=== PATIENT | female | born 1965 | race American Indian/Alaskan Native ===

== ENCOUNTER → 2024-06-04 | Outpatient (CLI) | payer MEDICAID, SELFPAY ==
--- NOTE | 2024-06-04 12:44 | XR_ITS ---
Examination: Knee bilateral, 7 views Technique: Knee AP, lateral, oblique each knee total 6 views, bilateral axial knees single view, total 7 views Date and time of exam: June 04, 2024 1311 hours INDICATIONS: Bilateral knee pain 10 years getting worse FINDINGS: Bilateral moderate advanced tricompartment osteoarthritis, more severe left knee No patellar dislocation No fracture IMPRESSION: Bilateral moderate to advanced tricompartment osteoarthritis
== END | disposition home or self-care (01) ==
PROVIDERS: PCP Physician Assistant; Referring Provider Internal Medicine; Visit Provider Internal Medicine
DX: M17.0 Bilateral primary osteoarthritis of knee (principal)
CPT/HCPCS: 73564

== ENCOUNTER 2024-12-22 09:53 | Outpatient (AMB) | payer MEDICAID, SELFPAY ==
--- NOTE | 2024-12-22 10:16 | ORTHONT_ITS ---
Vital signs 12/22/24 10:17 Height 1.65 m Height Method Measured Weight 94.461 kg Weight Measurement Method Standing Scale BMI 34.6 BP 130/88 H Blood Pressure Source Automatic Cuff Blood Pressure Location Right Upper Arm Position Sitting Respiration 18 Pulse 69 Pulse Source Monitor Temp 97.9 F Temp Source Temporal Artery Scan Pulse Oximetry (%) 98 Oxygen Delivery Method Room Air Med/Allergies Allergies & Medications Allergies aspirin Allergy (Unknown, Verified 12/22/24 10:18) EYES SWELL Medication Reconciliation diclofenac sodium 3 % topical gel 1 applic topical BID #100 grams 12/22/24 [Rx] meloxicam 7.5 mg tablet 7.5 mg PO QDAY #45 tabs 12/22/24 [Rx] Exam Exam Patient is in no acute distress and is cooperative with the examination today. Breathing is nonlabored. In no respiratory distress. Bilateral extremities were evaluated and demonstrates sensation intact to light touch. Palpable pedal pulses are present. No significant edema is present. Bilateral hips were examined. The patient has no pain with log roll of the hips. Internal rotation to 30 degrees and external rotation to 30 degrees is painless. Negative FADIR. The left knee was examined. The left knee is in varus alignment. Range of motion from 0-115 degrees. Knee is stable to varus and valgus as well as AP translation with <5mm. Patient has a negative McMurrays. There is no pain with patellofemoral compression and no crepitus noted. The knee is tender to palpation medially. The right knee was also examined. The right knee is in varus alignment. Range of motion from 0-120 degrees. Knee is stable to varus and valgus as well as AP translation with <5mm. Patient has a negative McMurrays. There is no pain with patellofemoral compression and no crepitus noted. The knee is tender to palpation medially. Nonweightbearing x-rays were reviewed. This demonstrates moderate arthritis Assessment and Plan Problem List (1) Degenerative arthritis of knee, bilateral: Status: Acute Plan: Patient is a pleasant 59-year-old female with bilateral knee arthritis of significant severity. We discussed different treatment options. We will need weightbearing x-rays and we will discuss more injections versus surgery at the next visit severity. 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 3 ([id number]) MA Intake Visit Data Collection New Patient or Established: New Patient (never been to [facility]) Reason for Visit:: BILATERAL KNEE PAIN Seen by Clinical Staff ONLY (RN/MA): No Senior Maintenance Mechanic Required: No PCP or OBGYN visit in last 3 months: Yes Hx Now: No Do You Feel Safe at Home: Yes Authorities Contacted: N/A Questionairres Past Medical History Past Medical History Have you ever been diagnosed with any of the following: Neurological Problems Seizures: No Cardiology Problems Congestive Heart Failure: No Varicose Veins: Yes Respiratory Problems Chronic Obstructive Pulmonary Disease (COPD): No Stomache/Intestinal Problems Hepatitis: No Obesity: Yes Genital/Urinary Problems Renal Disease: No Reproductive Problems Previous Pregnancies: Yes Musculoskeletal Problems Arthritis: Yes (knees) Endocrine Problems Diabetes Mellitus Type 1: No Diabetes Mellitus Type 2: No Other Problems Hospitalization: No Shingles: No Blood Transfusions: No Anesthesia Reactions: No Chicken Pox: Yes Cancer: No Subjective Visit Visit for: new patient and knee Immunization / Flu Flu Vaccine in the Last 12 Months: Yes Flu Vaccine Exclusion Criteria: Already Received History of Present Illness Chief complaint: BILATERAL KNEE PAIN Date of injury / onset of symptoms: 10-15 YEARS AGO Patient is a pleasant 59-year-old female with bilateral knee pain. The knee pain is equal on both sides. This been ongoing for a while. She has had over 10 injections. She has tried anti-inflammatories in the past as well. 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
[2024-12-22 10:17] VITALS: BP 130/88; PULSE 69; RESP 18; TEMP 36.6; O2SAT 98; BMI 34.6
--- NOTE | 2024-12-22 10:33 | XR_ITS ---
Examination: Bilateral knees 2 views Right lateral knee left lateral knee 2 views Bilateral axial knees single view TECHNIQUE: Bilateral AP knees standing single view, bilateral PA knees standing single view flexion Standing right lateral knee left lateral knee 2 views Bilateral axial knees single view total 5 views Date and time: December 22, 2024, 1036 hours INDICATIONS: Bilateral knee pain 20 years. FINDINGS: Advanced narrowing [id number] lateral joint spaces bilaterally Significant osteoarthritis medial and patellofemoral joints No fractures IMPRESSION: Advanced narrowing [id number] lateral joint spaces bilaterally Significant osteoarthritis medial and patellofemoral joints
== END 2024-12-22 10:38 | disposition home or self-care (01) ==
PROVIDERS: PCP Physician Assistant; Referring Provider Physician Assistant; Supervising Provider Orthopaedic Surgery Adult Reconstructive Orthopaedic Surgery; Visit Provider Orthopaedic Surgery Adult Reconstructive Orthopaedic Surgery
DX: M17.0 Bilateral primary osteoarthritis of knee (principal); M25.562 Pain in left knee; M25.561 Pain in right knee
CPT/HCPCS: 73564; 99203; G0463

== ENCOUNTER 2025-03-26 09:22 | Outpatient (AMB) | payer MEDICAID, SELFPAY ==
--- NOTE | 2025-03-26 09:45 | PD.ORTHCLVIS ---
Vital signs 03/26/25 09:46 Height 1.65 m Height Method Measured Weight 91.796 kg Weight Measurement Method Standing Scale BMI 33.7 BP 119/81 Blood Pressure Source Automatic Cuff Blood Pressure Location Left Upper Arm Position Sitting Respiration 19 Pulse 62 Pulse Source Monitor Temp 96.9 F Temp Source Temporal Artery Scan Pulse Oximetry (%) 98 Oxygen Delivery Method Room Air Med/Allergies Allergies & Medications Allergies aspirin Allergy (Unknown, Verified 03/26/25 09:47) EYES SWELL Medication Reconciliation diclofenac sodium 3 % topical gel 1 applic topical BID #100 grams 12/22/24 [Rx Confirmed 03/26/25] meloxicam 7.5 mg tablet 7.5 mg PO QDAY #45 tabs 12/22/24 [Rx Confirmed 03/26/25] Exam Exam Patient is in no acute distress and is cooperative with the examination today. Breathing is nonlabored. In no respiratory distress. Bilateral extremities were evaluated and demonstrates sensation intact to light touch. Palpable pedal pulses are present. No significant edema is present. Bilateral hips were examined. The patient has no pain with log roll of the hips. Internal rotation to 30 degrees and external rotation to 30 degrees is painless. Negative FADIR. The left knee was examined. The left knee is in varus alignment. Range of motion from 0-115 degrees. Knee is stable to varus and valgus as well as AP translation with <5mm. Patient has a negative McMurrays. There is no pain with patellofemoral compression and no crepitus noted. The knee is tender to palpation medially. The right knee was also examined. The right knee is in varus alignment. Range of motion from 0-120 degrees. Knee is stable to varus and valgus as well as AP translation with <5mm. Patient has a negative McMurrays. There is no pain with patellofemoral compression and no crepitus noted. The knee is tender to palpation medially. Weightbearing x-rays demonstrates joint space narrowing laterally with complete joint space obliteration both in left and right knees on the Chen view Assessment and Plan Problem List (1) Degenerative arthritis of knee, bilateral: Status: Acute Plan: Patient is a pleasant 59-year-old female with bilateral knee arthritis of significant severity. We discussed different treatment options. Weightbearing x-rays demonstrate significant arthritis. The patient has she is doing better than we last saw her. We discussed nonoperative options including injections and anti-inflammatories and physical therapy. She would like to continue with anti-inflammatories for now. We will see her back in approximately 6 months Office Procedures GNS Level of Care Nursing/Assessment Patient Status: Established Patient Nursing Assessment/Reassesment: Medication Reconciliation, Update PMH in EMR and Vital Signs Coordination of Care: Complex Care and Chronic Disease 1-5, Education Complex Pt/Fam, Consent,records obtained, informed consent, Results/Orders obtained and Staff clarify orders Established Patient Charge Established Patient Point Assignment: 95 Established Patient Point Charge: EP Level 3 (80-115) MA Intake Visit Data Collection New Patient or Established: Established Patient (seen at [facility] within 3 years) Reason for Visit:: 3 MONTH F/U BILATERAL KNEE PAIN Seen by Clinical Staff ONLY (RN/MA): No Physical Chemistry Professor Required: No PCP or OBGYN visit in last 3 months: Yes Hx Now: No Do You Feel Safe at Home: Yes Authorities Contacted: N/A Questionairres Past Medical History Past Medical History Have you ever been diagnosed with any of the following: Neurological Problems Seizures: No Cardiology Problems Congestive Heart Failure: No Varicose Veins: Yes Respiratory Problems Chronic Obstructive Pulmonary Disease (COPD): No Stomache/Intestinal Problems Hepatitis: No Obesity: Yes Genital/Urinary Problems Renal Disease: No Reproductive Problems Previous Pregnancies: Yes Musculoskeletal Problems Arthritis: Yes (knees) Endocrine Problems Diabetes Mellitus Type 1: No Diabetes Mellitus Type 2: No Other Problems Hospitalization: No Shingles: No Blood Transfusions: No Anesthesia Reactions: No Chicken Pox: Yes Cancer: No Subjective Visit Visit for: follow up visit and knee Immunization / Flu Flu Vaccine in the Last 12 Months: Yes Flu Vaccine Exclusion Criteria: Already Received History of Present Illness Chief complaint: BILATERAL KNEE PAIN Date of injury / onset of symptoms: 10-15 YEARS AGO Patient is a pleasant 59-year-old female with bilateral knee pain. The knee pain is equal on both sides. This been ongoing for a while. She has had over 10 injections. She has tried anti-inflammatories in the past as well. 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
[2025-03-26 09:46] VITALS: BP 119/81; PULSE 62; RESP 19; TEMP 36.1; O2SAT 98; BMI 33.7
== END 2025-03-26 10:00 | disposition home or self-care (01) ==
LOC: HODSRG 09:22
PROVIDERS: PCP Physician Assistant; Referring Provider Physician Assistant; Supervising Provider Orthopaedic Surgery Adult Reconstructive Orthopaedic Surgery; Visit Provider Orthopaedic Surgery Adult Reconstructive Orthopaedic Surgery
DX: M25.562 Pain in left knee (principal); M25.561 Pain in right knee; M17.0 Bilateral primary osteoarthritis of knee; E66.9 Obesity, unspecified; Z68.33 Body mass index [BMI] 33.0-33.9, adult
CPT/HCPCS: 99213; G0463

== ENCOUNTER 2025-04-24 13:27 | Inpatient (IN) | payer MEDICAID, SELFPAY ==
[2025-04-24] VITALS (7 sets, daily range): BP systolic 151–166; BP diastolic 89–99; PULSE 76–87; RESP 17–100; TEMP 36.1–36.9; O2SAT 97–100; BMI 30.7
--- NOTE | 2025-04-24 | XR_ITS ---
Examinations: MRI Brain without intravenous contrast. MRA brain without intravenous contrast. MRA carotids without intravenous contrast 3-D vascular reconstructions Date and time of exam: April 24, 2025, 1739 hours INDICATIONS: Stroke alert today, onset focal neurologic deficit Technique: Multiple axial and sagittal images of the brain have been obtained MRA brain carotid images without contrast obtained, including 3-D postprocessing, vascular maximum intensity projection images Findings: [place] is not enlarged. The optic chiasm and infundibular stalk are not remarkable. Prepontine and interpeduncular cisterns are not enlarged. No localized enlargement of the medulla or shannen. Fourth ventricle and cerebellar tonsils normal in position. Subacute hemorrhage is not seen. Fourth ventricle is midline. Mass in the cerebellopontine angle region is not evident. 7th and 8th nerve complexes exhibits symmetry. Globes are symmetrical with no retro-orbital mass. Increased white matter signal evident, punctate foci increased signal in the white matter Diffusion-weighted images demonstrate no focus of restricted diffusion Mass-effect upon the ventricular system is not identified. MRA carotid images suspicious for right carotid significant stenosis however the images are degraded. MRA brain images no large vessel occlusions Impression: Negative for acute hemorrhage, mass effect or midline shift No acute infarct Punctate foci increased signal in the white matter consider demyelinating disease Recommend carotid Doppler sonography follow-up to exclude significant stenosis origin right internal carotid artery
--- NOTE | 2025-04-24 13:49 | XR_ITS ---
EXAMINATION: AP chest single view TECHNIQUE: AP portable semiupright chest single view Date and time: April 24, 2025, 1407 hours, comparison August 18, 2021 INDICATIONS: Stroke alert today FINDINGS: Mild enlargement cardiac contour. No aspiration pneumonia or pulmonary edema. Moderate osteopenia IMPRESSION: Negative for aspiration pneumonia
--- NOTE | 2025-04-24 13:49 | XR_ITS ---
Examination: CT brain head without contrast. 2-D sagittal coronal reconstructions Date and time of exam: April 24 2025, 1404 hours INDICATIONS: Stroke alert, onset focal neurologic deficit today CTDI: vol (mGy): 46.1 DLP: (mGycm): 920 Technique: Multiple CT axial sections of the brain have been obtained, 5 mm slice thickness. Contrast has not been administered. 2-D sagittal, coronal reconstructions have been obtained Low dose protocols were performed. One or more of the following dose reduction techniques were used; automated exposure control, adjustment of the mA and/or KV according to patient size, use of iterative reconstruction technique. Findings: No significant ventricular enlargement. Intra-axial or extra-axial hemorrhage density is not seen. No mass effect or midline shift Basal cisterns are not remarkable. Fourth ventricle is midline. Cranial vault intact. Impression: Negative for acute hemorrhage, mass effect or midline shift
--- NOTE | 2025-04-24 13:49 | EKG_ITS ---
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
--- NOTE | 2025-04-24 13:49 | XR_ITS ---
Examination: CTA carotids with intravenous contrast CTA brain, head with intravenous contrast. 2-D sagittal, coronal reconstructions. 3-D reconstructions. Exam date and time: April 24, 2025, 1411 hours INDICATIONS: Stroke alert, onset focal neurologic deficit today CTDI: vol (mGy) 11.4 DLP: (mGycm) 432 Technique: Multiple CTA axial brain, head carotid images post intravenous contrast injection 100 cc, [id number]. 2-D sagittal, coronal reconstructions. 3-D reconstructions, 3-D post processing including vascular maximum intensity projection images. Low dose protocols were performed. One or more of the following dose reduction techniques were used; automated exposure control, adjustment of the mA and/or KV according to patient size, use of iterative reconstruction technique. Findings: No significant common carotid carotid bifurcation or internal carotid artery stenoses Dominant right vertebral artery with no critical stenoses Intracranial vertebral arteries basilar artery and posterior cerebral branches fill with no large vessel occlusions Juxtasellar supraclinoid portions internal carotid arteries fill M1 segments middle cerebral arteries middle cerebral artery trifurcation vessels and anterior cerebral arteries fill with no large vessel occlusions IMPRESSION: No significant neck arterial stenoses No cerebral large vessel arterial occlusions or thrombus
--- NOTE | 2025-04-24 13:52 | EDNOTE_ITS ---
ED General RME/HPI General Chief complaint: Eye Problems Stated complaint: Left arm numb while driving, vision impaired Time Seen by Provider: 04/24/25 13:49 Arrival date/time: 04/24/25 13:27 59-year-old female patient with no past medical history, came in for evaluation regarding strokelike symptoms. Onset of symptoms about 20 minutes prior to ER visit as sudden onset of numbness to the lower lip, numbness to the left upper extremity, and blurry vision bilateral eyes. Patient also told me that her left eye cannot see lateral aspect of the visual field. It happened while driving on the way to home. She told me it lasted for 10 minutes. Clinically patient is having mild facial asymmetry, mild loss of nasolabial fold on the left. She denies any headache she denies any dizziness. She denies any upper or lower extremity weakness is ambulatory. She denies any other complaints. No medications taken prior to arrival. She denies any trauma to the head. She told me that she woke up this morning felt nauseous. It went away on its own. Related Data Previous Rx's ?Medication ?Instructions ?Recorded diclofenac sodium 3 % topical gel 1 applic topical BID #100 grams 12/22/24 meloxicam 7.5 mg tablet 7.5 mg PO QDAY #45 tabs 12/02 07/28 Allergies Allergy/AdvReac Type Severity Reaction Status Date / Time aspirin Allergy Unknown EYES SWELL Verified 04/24/25 13:31 Review of Systems Review of Systems Narrative Review of Systems: Review of system reviewed and within normal limits except mentioned in HPI ED Exam Narrative Physical exam: VITAL SIGNS: Reviewed. GENERAL APPEARANCE: Alert and interactive, follows commands, no acute distress, HEAD AND FACE: Non-traumatic. Mild facial asymmetry, loss of nasolabial fold on the left ENT: PERRL, pink conjunctivitis, eyelid no trauma, Mucous membrane moist. NECK: Supple, nontender, no nuchal rigidity. CHEST: No tenderness, no crepitus, no paradoxical movement, no retractions. LUNGS: Clear, well ventilated, symmetric, no rales, no wheezing, no ronchi, no stridor, good breath sounds bilaterally. HEART: Regular rate, regular rhythm, no murmur, no gallops. ABDOMEN: Soft, positive bowel sounds, nondistended, no guarding, nontender, no rebound, no masses, RECTAL: Deferred. GENITAL: Deferred. NEUROLOGICAL: Gross motor function intact sensory function intact, Appropriate for age. MUSCULOSKELETAL: low back nontender, full range of motion. EXTREMITIES: Nontender, full range of motion. SKIN: Color pink, dry, no rash, no lacerations, no abrasions, no contusions. LYMPHATICS: Deferred. Course Quality Measures none Orders Category Date Time Status Bedside Blood Glucose NOW Care 04/24/25 13:49 Active Procurement Clerk NOW Care 04/24/25 13:49 Active Continuous Pulse Oximetry NOW Care 04/24/25 13:49 Completed EKG (ED ONLY) *Do not use* NOW Care 04/24/25 13:49 Active In and Out Catheter NEEDED Care 04/24/25 13:49 Active Insert IV NOW Care 04/24/25 13:49 Active NIH Stroke Scale now Care 04/24/25 13:49 Active NPO NOW Care 04/24/25 13:49 Active Nurse Swallow Screen x1 Care 04/24/25 13:49 Active Consult to Neurology / Tele-Neurology Routine Cons 04/24/25 13:[address] angio stroke protocol Stat Exams 04/24/25 13:[address] stroke protocol Stat Exams 04/24/25 13:49 Taken EKG (ED Only) Stat Exams 04/24/25 13:49 Ordered XR chest 1V portable Stat Exams 04/24/25 13:49 Taken CBC Stat Lab 04/24/25 13:53 Completed Comprehensive Metabolic Panel Stat Lab 04/24/25 13:53 Results HCG Titer if Positive Stat Lab 04/24/25 13:53 Results Magnesium Stat Lab 04/24/25 13:53 Results Partial Thromboplastin Time Stat Lab 04/24/25 13:53 Completed Prothrombin Time with INR Stat Lab 04/24/25 13:53 Completed Troponin I Stat Lab 04/24/25 13:53 Results Urinalysis, C/S if Indicated Stat Lab 04/24/25 13:49 Ordered Clopidogrel [Plavix] Med 04/24/25 14:37 Discontinued 300 mg PO X1 ONE Labetalol* IV [Trandate* IV] Med 04/24/25 13:49 Active 10 mg IVP Q15M PRN Ondansetron Inj [Zofran Inj] Med 04/24/25 13:49 Active 4 mg IVP Q4HR PRN Oxygen Delivery NOW RT 04/24/25 13:49 Active Vital Signs Vital signs: Vital Signs Temperature 98.5 F 04/24/25 13:35 Pulse Rate 87 04/24/25 13:35 Respiratory Rate 17 04/24/25 13:35 Blood Pressure 162/99 H 04/24/25 13:35 Pulse Oximetry (%) 97 04/24/25 13:35 Oxygen Delivery Method Room Air 04/24/25 13:35 Discharge Plan Plan Patient Disposition: Admit Acute Care w/in Hospital Prescriptions/Referrals Prescriptions/Med Rec: No Action meloxicam 7.5 mg tablet 7.5 mg PO QDAY Qty: 45 3RF diclofenac sodium 3 % gel 1 applic topical BID Qty: 100 0RF Referrals: Erick(Chay)Kimberly PA-C [Primary Care Provider] - In 1 week Problem List Clinical Impression: Brain TIA Patient/Caregiver Discharge Instructions Print Language: Mauritanian Stand Alone Forms: [employer]leyda Award Info., Patient Portal Info Letter MDM Narrative MDM hospital course (for use when minimal MDM required): 59-year-old female patient with no past medical history, came in for evaluation regarding strokelike symptoms. Onset of symptoms about 20 minutes prior to ER visit as sudden onset of numbness to the lower lip, numbness to the left upper extremity, and blurry vision bilateral eyes. Patient also told me that her left eye cannot see lateral aspect of the visual field. It happened while driving on the way to home. She told me it lasted for 10 minutes. Clinically patient is having mild facial asymmetry, mild loss of nasolabial fold on the left. She denies any headache she denies any dizziness. She denies any upper or lower extremity weakness is ambulatory. She denies any other complaints. No medications taken prior to arrival. She denies any trauma to the head. She told me that she woke up this morning felt nauseous. It went away on its own. stroke alert was initiated right away. Spoke with teleneurologist, who advised giving the patient Plavix 300 mg x 1, patient is allergic to aspirin. Not a candidate for tPA. Patient is to be admitted for further evaluation regarding stroke. Plan of care discussed with the patient who agrees to be admitted. Case discussed with hospitalist, who admitted the patient Medication Administration(s) Medication Administration History Labetalol HCl (Labetalol Inj 5 Mg/Ml Vial 4 Ml) 10 mg IVP Q15M PRN PRN Reason: hypertension Ondansetron HCl (Ondansetron Inj 2 Mg/Ml Inj 2 Ml) 4 mg IVP Q4HR PRN PRN Reason: NAUSEA OR VOMITING Stop: 05/24/25 13:48 Discontinued Medications Clopidogrel Bisulfate (Clopidogrel Bisulfate 75 Mg Tablet) 300 mg PO X1 ONE Stop: 04/24/25 14:38 Last Admin: 04/24/25 14:47 Dose: 300 mg Documented By: TM See above Diagnosis Differential Diagnosis ED Complaint MDM: CVA, TIA, high-grade TIA, paresthesia Diagnoses ruled out and/or further discussions: TIA
[2025-04-24 14:08] LABS: Basophils # (Auto) 0.1 Thou/mm3 (0.0-0.2); Basophils % (Auto) 1 % (0-2.5); Eosinophils # (Auto) 0.1 Thou/mm3 (0.0-0.5); Eosinophils % (Auto) 1 % (0-10); Hematocrit 39.8 % (36.0-46.0); Hemoglobin 13.3 g/dL (12.0-16.0); Immature Granulocytes Auto 0.01 Thou/mm3 (0.00-0.00); Lymphocytes # (Auto) 4.2 Thou/mm3 (1.0-4.8); Lymphocytes % (Auto) 55 % (10-50); Mean Corpuscular HGB Conc 33.4 g/dl (31.0-37.0); Mean Corpuscular Hemoglobin 28.8 pg (25.0-35.0); Mean Corpuscular Volume 86 fL (80-100); Monocytes # (Auto) 0.5 Thou/mm3 (0.0-0.8); Monocytes % (Auto) 7 % (0-12); Neutrophils # (Auto) 2.8 Thou/mm3 (1.8-7.7); Neutrophils % (Auto) 37 % (37-80); Nucleated Red Blood Cell # 0.00 Thou/mm3 (0.00-0.00); Nucleated Red Blood Cell % 0 /100 WBC (0); Platelet Count 177 Thou/mm3 (140-440); RDW Standard Deviation 43.3 fL (36.4-46.3); Red Blood Count 4.62 Miln/mm3 (4.00-5.20); White Blood Count 7.6 Thou/mm3 (3.6-11.0)
--- NOTE | 2025-04-24 14:23 | PC.NURSE ---
PT COMES IN THROUGH TRIAGE, STATES 20 MINUTES PRIOR TO ARRIVAL SHE WAS AT SCHOOL HER BOTTOM LIP WHEN NUMB, THEN WAS DRIVING AND HER LEFT ARM BEGAN FEELING NUMB, AND CAME HERE. HERE SYMPTOMS HAVE RESOLVED. NIH 0.
[2025-04-24 14:32] LABS: INR 1.0 (0.9-1.3); Partial Thromboplastin Time 28.0 Seconds (22.0-36.0); Prothrombin Time 10.4 Seconds (9.0-12.2)
--- NOTE | 2025-04-24 14:32 | PD.TNEURO ---
Tele Neuro Consultation Consultation Date 04/24/25 Most Recent Vital Signs Last Vital Signs Temp 98.5 F 04/24/25 13:35 Pulse 87 04/24/25 13:35 Resp 17 04/24/25 13:35 BP 162/99 H 04/24/25 13:35 Pulse Ox 97 04/24/25 13:35 O2 Del Method Room Air 04/24/25 13:35 Consultation Narrative [facility] TeleNeurology Consult Services Patient Name:???Melodie Tabor Date of :???1965 Identification Number:??? Date of Service:???04/24/2025 13:49:05 Diagnosis:?R29.818 - Transient neurological symptoms Impression: ?59 year old woman with obesity for whom neurology is consulted for evaluation of stroke. LKW around 1300 today. Symptoms of left sided numbness and decreased visual acuity. Now resolved. NIHSS = 0. TNK deferred due to resolved symptoms. NCCT Head without acute ischemia or hemorrhage. CTA Head and Neck are pending. 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 ? ?Recommendations: ?-q4 vitals/neurochecks ?-BP goal permissive up to 220/110mmHg for 24 hours followed by gradual reduction in BP toward goal normotension avoiding drop in BP >15% daily ?-Blood glucose goal <180mg/dL while admitted ?-Aspirin 325mg x1 in ED ?-Continue Aspirin 81mg qdaily for now ?-Atorvastatin 40mg qHS for now ?-Check LDL and A1c (goal LDL <70, goal A1c <7) ?-Obtain CTA Head and Neck w/ contrast, MRI Brain w/o contrast, TTE w/ bubble, and place on telemetry monitoring ?-PT/OT/ST consults, NPO until passes bedside swallow study ?-Neurology follow up recommended Advanced Imaging: Advanced imaging has been ordered. Results pending. Metrics: Last Known Well: 04/24/2025 13:00:00 Arrival Time: 04/24/2025 13:27:00 Activation Time: 04/24/2025 13:49:05 Initial Response Time: 04/24/2025 13:50:47Symptoms: Left sided numbness, Bilateral lip numbness, Left sided vision changes. Initial patient interaction: 04/24/2025 13:57:30 NIHSS Assessment Completed: 04/24/2025 14:01:19Patient is not a candidate for Thrombolytic. Thrombolytic Medical Decision: 04/24/2025 14:01:20Patient was not deemed candidate for Thrombolytic because of following reasons: Resolved symptoms . CT Head: I personally reviewed all the CT images that were available to me and it showed: No hemorrhage or obvious acute ischemia Primary Provider Notified of Diagnostic Impression and Management Plan on: 04/24/2025 14:20:46 History of Present Illness:Patient is a 59 year old Female. Patient was brought by private transportation with symptoms of Left sided numbness, Bilateral lip numbness, Left sided vision changes. Melodie Tabor is a 59 year old woman with obesity on Zepbound (but otherwise healthy) who presents to ED for evaluation of left sided numbness and vision changes. She reports feeling unwell this morning with nausea and an episode of vomiting but felt improved after vomiting and went to class. After her class, she began noticing bilateral lower lip paresthesia. Then, a few minutes later, while driving she noticed left arm numbness as well as left peripheral field vision changes. The numbness resolved after 10 minutes. She noted improved vision symptoms that have since resolved after arriving to the emergency department. She currently has a mild headache. No history of similar symptoms in the past. She has otherwise been in her usual state of health until today. Past Medical History: Other PMH:? Obesity Medications: No Anticoagulant use? No Antiplatelet use Reviewed EMR for current medications Allergies:? Reviewed Social History: Drug Use: No Family History: There is no family history of premature cerebrovascular disease pertinent to this consultation ROS : 14 Points Review of Systems was performed and was negative except mentioned in HPI. Past Surgical History: There Is No Surgical History Contributory To Today?s Visit Examination: BP(162/99),?Pulse(87),?Blood Glucose(100) 1A: Level of Consciousness - Alert; keenly responsive?+ 0 1B: Ask Month and Age - Both Questions Right?+ 0 1C: Blink Eyes & Squeeze Hands - Performs Both Tasks?+ 0 2: Test Horizontal Extraocular Movements - Normal?+ 0 3: Test Visual Crook - No Visual Loss?+ 0 4: Test Facial Palsy (Use Grimace if Obtunded) - Normal symmetry?+ 0 5A: Test Left Arm Motor Drift - No Drift for 10 Seconds?+ 0 5B: Test Right Arm Motor Drift - No Drift for 10 Seconds?+ 0 6A: Test Left Leg Motor Drift - No Drift for 5 Seconds?+ 0 6B: Test Right Leg Motor Drift - No Drift for 5 Seconds?+ 0 7: Test Limb Ataxia (FNF/Heel-No) - No Ataxia?+ 0 8: Test Sensation - Normal; No sensory loss?+ 0 9: Test Language/Aphasia - Normal; No aphasia?+ 0 10: Test Dysarthria - Normal?+ 0 11: Test Extinction/Inattention - No abnormality?+ 0 NIHSS Score:?0 Pre-Morbid Modified [place] Scale: 0 Points = No symptoms at all Spoke with :?ED Attending MD This consult was conducted in real time using interactive audio and video technology. Patient was informed of the technology being used for this visit and agreed to proceed. Patient located in hospital and provider located at home/office setting. Patient is being evaluated for possible acute neurologic impairment and high probability of imminent or life-threatening deterioration. I spent total of 35 minutes providing care to this patient, including time for face to face visit via telemedicine, review of medical records, imaging studies and discussion of findings with providers, the patient and/or family. Dr Jaron Mabry [facility] For Inpatient follow-up with [facility] physician please call [facility] at . As we are not an outpatient service for any post hospital discharge needs please contact the hospital for assistance. If you have any questions for the [facility] physicians or need to reconsult for clinical or diagnostic changes please contact us via [facility] at . Non-radiologist review of imaging performed to assist with emergent clinical decision-making. Remote physician workstations do not possess the same resolution, calibration, or diagnostic capabilities as hospital-based radiology reading stations, and formal radiologist read is necessary. Signature :?Jaron Mabry
[2025-04-24 14:45] LABS: Alanine Aminotransferase 12 U/L (10-49); Albumin, Serum 4.7 gm/dL (3.5-5.0); Albumin/Globulin Ratio 1.4 (1.2-2.2); Alkaline Phosphatase 120 U/L (46-116); Anion Gap 10 (7-16); Aspartate Amino Transferase 23 U/L (0-34); BUN/Creatinine Ratio 13 Ratio (12-20); Bilirubin,Total 0.5 mg/dL (0.3-1.2); Blood Urea Nitrogen 12 mg/dL (9-23); Calcium 9.7 mg/dL (8.3-10.6); Calcium (Corrected) 9.7 mg/dL (8.5-10.1); Carbon Dioxide 26.2 mMol/L (20.0-31.0); Chloride 106 mMol/L (98-107); Creatinine (Component) 0.9 mg/dL (0.6-1.3); Estimated Creatinine Clearance 79.7 mL/min (>60); Globulin 3.4 gm/dL (2.3-3.5); Glucose 97 mg/dL (74-106); Magnesium 1.9 mg/dL (1.6-2.6); Osmolality,Calculated 282 (275-295); Potassium 4.0 mMol/L (3.4-5.1); Sodium 142 mMol/L (136-145); Total Protein 8.1 gm/dL (5.7-8.2); Troponin I < 0.002 ng/mL (0.0-0.045); eGFR > 60 See Note
[2025-04-24] MEDS: CLOPIDOGREL BISULFATE 75 MG TABLET 300 MG PO (14:47)
[2025-04-24 15:18] LABS: HCG Titer if Positive Negative
--- NOTE | 2025-04-24 16:23 | PD.RESHP ---
Documentation for date of: 04/24/25 HPI History of Present Illness History of present illness: Patient is a 59-year-old F with a PMH of HTN, HLD, and obesity class I (BMI 30.7) who presented on 04/24/25 with a chief complaint of numbness of the lower lip, left-handed numbness, and visual changes. She reports that her symptoms began 30-40 minutes prior to her arrival in the ED at around 1500 and lasted for about 20 minutes before self-resolving. The episode began while she was driving with her first noticing numbness of the lower lip followed by numbness of the left hand that creeped up the left forearm as well as blurring and spotting in both eyes. She reports that she has never had an episode like this before. At the time of interview, she reports feeling back to normal and denied any persistence of her described symptoms as well as any other symptoms of headache, dizziness, or N/V. She denies any recent significant travel history or sick contacts. PMH: HTN, HLD PSH: x 3, ankle surgery Medications: Zepbound Allergies: aspirin (facial swelling and lip swelling but no SOB) FH: Does not know SH: Does not know In the ED, vitals showed: BP 153/97 HR 80 RR 20 Temp 98.4 SpO2 98% on room air CBC WNL. Coagulation panel WNL. CMP WNL. 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 At this time, patient was given Plavix 300 mg PO x 1 and did not receive TNK. Patient was admitted for the work-up and management of stroke-like symptoms concerning for TIA. Neurology was consulted and is closely following the case. Review of Systems Review of Systems Systems Reviewed: All systems reviewed, normal except as documented Exam Vital Signs Temp Pulse Resp BP Pulse Ox O2 Del Method 98.5 F 84 17 162/99 H 97 Room Air 04/24/25 13:35 04/24/25 14:47 04/24/25 13:35 04/24/25 13:35 04/24/25 13:35 04/24/25 13:35 Narrative Exam Physical Exam: General: Alert, obese woman in no acute distress. Skin: Warm, dry, intact, no obvious rash. Head: Normocephalic, atraumatic. Eye: Normal conjunctiva, PERRL. Throat: Oral mucosa moist. Cardiovascular: Regular rate and rhythm, no murmur, normal peripheral perfusion, no edema. Respiratory: Lungs are clear to auscultation, respirations non labored, no crackles, no wheezing. Gastrointestinal: Soft, nontender, non-distended. Psychiatric: Cooperative, appropriate affect. Neuro: Mental status: Alert, oriented, appropriately responding to commands. Speech/Language: Speech fluent, no word finding difficulty or paraphasic errors observed. Language-comprehension, repetition and naming intact. No dysarthria noted. Memory: Grossly recent and remote intact. Cranial Nerves: II: No visual deficits and visual addison full to confrontation. Pupils 2-3 mm size BL round, reactive to light. III, IV, : EOMI, no nystagmus, no ptosis, no APD, smooth pursuit without saccadic intrusion, conjugate horizontal gaze intact. V: Slightly reduced gross sensation of V2 distribution to crude touch. Gross sensation intact in V1 and V3 distribution to crude touch. Jaw strength normal. VII: No facial asymmetry, able to smile symmetrically and BL good eye closure. VIII: Hearing intact in both ears per finger rubbing. IX, X: Symmetrical palate elevation, uvula in midline. XI: Symmetrical head rotation and shoulder shrug. IX, XII: Midline tongue protrusion. No fasciculations or atrophy noted. Sensory examination Crude touch in bilateral upper and lower extremity grossly intact. Motor examination No drift in bilateral upper extremity 5/5 strength in bilateral upper extremity 5/5 strength in bilateral lower extremity Coordination Wvwnbg-lz-ghrf test and qcbx-dg-aetm test performed without any difficulty. No dysmetria. Results: Labs 04/25/25 05:25 04/25/25 05:25 Labs: Short CBC 04/24/25 Range/Units 13:53 WBC 7.6 (3.6-11.0) Thou/mm3 Hgb 13.3 (12.0-16.0) g/dL Hct 39.8 (36.0-46.0) % Plt Count 177 (140-440) Thou/mm3 BMP 04/24/25 13:53 Sodium 142 Potassium 4.0 Chloride 106 Carbon Dioxide 26.2 BUN 12 Creatinine 0.9 Glucose 97 Calcium 9.7 Cardiac Enzymes 04/24/25 Range/Units 13:53 Troponin I < 0.002 (0.0-0.045) ng/mL Liver Function 04/24/25 Range/Units 13:53 Total Bilirubin 0.5 (0.3-1.2) mg/dL AST 23 (0-34) U/L ALT 12 (10-49) U/L Alkaline Phosphatase 120 H (46-116) U/L Albumin 4.7 (3.5-5.0) gm/dL Quality Measures Quality Measures none Medications Home Medications and Allergies Home Medications ?Medication ?Instructions ?Recorded ?Confirmed ?Type tirzepatide (weight loss) 12.5 12.5 mg subcut QWEEK 04/24/25 04/24/25 History mg/0.5 mL subcutaneous pen injector (Zepbound) Allergies Allergy/AdvReac Type Severity Reaction Status Date / Time aspirin Allergy Unknown EYES SWELL Verified 04/24/25 13:31 Visit Medications Acetaminophen (Acetaminophen Supp 650 Mg Supp) 650 mg OR Q6H PRN PRN Reason: PAIN SCALE 1-3 (mild Stop: 05/24/25 15:57 Atorvastatin Calcium (Atorvastatin Calcium 20 Mg Tablet) 40 mg PO HS RAFAEL Stop: 05/24/25 20:59 Heparin Sodium (Porcine) (Heparin Sod Inj 5000 Unit/Ml Vial) 5,000 unit SC Q12HR RAFAEL Stop: 05/08/25 20:59 Labetalol HCl (Labetalol Inj 5 Mg/Ml Vial 4 Ml) 10 mg IVP Q15M PRN PRN Reason: hypertension Melatonin (Melatonin 3 Mg Tablet) 6 mg PO HS PRN PRN Reason: Insomnia Stop: 05/24/25 20:59 Ondansetron HCl (Ondansetron Inj 2 Mg/Ml Inj 2 Ml) 4 mg IVP Q4HR PRN PRN Reason: NAUSEA OR VOMITING Stop: 05/24/25 13:48 Discontinued Medications Clopidogrel Bisulfate (Clopidogrel Bisulfate 75 Mg Tablet) 300 mg PO X1 ONE Stop: 04/24/25 14:38 Last Admin: 04/24/25 14:47 Dose: 300 mg Assessment & Plan Plan Patient is a 59-year-old F with a PMH of HTN, HLD, and obesity class I (BMI 30.7) who presented on 04/24/25 with a chief complaint of numbness of the lower lip, left-handed numbness, and visual changes. Patient was admitted for the work-up and management of stroke-like symptoms concerning for TIA. #Transischemic attack Initial 04/24 presentation: episode of numbness of the lower lip followed by numbness of the left hand that creeped up the left forearm as well as blurring and spotting in both eyes, lasting 20 minutes (no similar prior episode) However, all symptoms had self-resolved by time of interview in the ED In the ED, Stroke Alert was called and patient was evaluated by Tele-Neurology to have an NIHSS Score of 0 and Pre-Morbid Modified [place] Scale Score of 0 04/[address] and head/neck CTA negative for acute findings, no TNK administered Dx: -04/24 brain MRI with MRA ordered, showed ___ -04/24 echo with bubble study ordered, showed ___ -04/24 hemoglobin A1c ordered, showed ___ -04/24 lipid panel ordered, showed ___ Rx: -Neuro checks Q4HR -Permissive hypertension of up to 220/100 for the first 24 hours followed by gradual reduction in BP towards goal of normal blood pressures while avoiding >15% BP drop daily -Maintain euglycemia <180 while hospitalized -Aspirin being held due to patient's reported allergy to it -Plavix 75 mg PO QD (s/p Plavix 300 mg PO x 1 given on 04/24 in the ED) -Atorvastatin 40 mg PO QHS -NPO until bedside swallow cleared -PT and speech therapy referral -Echo ordered -Neurology consulted, appreciate recommendations #Hypertension 04/24 admission BP 162/99 Likely 2/2 acute hypoperfusion event of the brain leading to compensatory hypertension Rx: -Permissive hypertension as mentioned above #Obesity class I #Hyperlipidemia BMI 30.7, on home Zepbound for weight loss Per history, patient reports that she has been told her cholesterol was high in the past Dx: -Lipid panel as above Rx: -Atorvastatin 40 mg PO Hospital Management: Disposition: Med Tele Diet: NPO GI Prophylaxis: Not Indicated Bowel Prophylaxis: None DVT Prophylaxis: Heparin CODE STATUS: Full Code I have examined the patient and conferred with my attending, Dr. Temple, and my senior resident, Dr. Oneil, regarding them. Mac Hammond DO PGY-1 Internal Medicine Attending Provider Attestation/Addendum I or my resident physicians have discussed care with the ED physician and I have made the decision to admit. I have discussed and was present for the essential components of the history, physical examination, diagnosis, and treatment plan with the resident. I agree with the patient's care as documented by the resident and amended herein by me. Tommie Temple DO. Although this document has been carefully reviewed, there may still be some phonetic and other typographical errors. These errors are purely grammatical due to imperfections in the software program and should not be construed in any way to compromise the substance of the patient's medical care during this visit.
[2025-04-24] MEDS: HEPARIN SOD INJ 5000 UNIT/ML VIAL SC (20:43)
[2025-04-24] MEDS: ATORVASTATIN CALCIUM 20 MG TABLET 40 MG PO (20:43)
--- NOTE | 2025-04-24 22:21 | PD.NEUROPROG ---
Documentation for date of: 04/24/25 Subjective Subjective Interval history: Patient was seen in telemetry today. No new symptoms reported no recurrence of similar symptoms after admission. Exam - Neurology Vital Signs Temp Pulse Resp BP Pulse Ox O2 Del Method 98.5 F 76 20 151/89 H 99 Room Air 04/24/25 20:00 04/24/25 20:00 04/24/25 20:00 04/24/25 20:00 04/24/25 20:00 04/24/25 20:00 Narrative Exam GENERAL APPEARANCE: Well-developed, obese built female in no acute distress. HEENT: Normocephalic, atraumatic, extraocular movements intact. Pupils: Equal reacting to light and accommodation, tympanic membranes are bilaterally intact. There is no bulge or retraction. Throat without erythema or exudate. Moist oral mucosa. NECK: Supple, no JVD or bruits. CARDIOVASULAR: Heart: S1, S2 heard, regular without S3-S4 or murmur no rubs or gallops. LUNGS/CHEST: Clear to auscultation bilaterally. No rails, rhonchi, or wheezing. Normal inspection. ABDOMEN: Soft, nontender, with normal bowel sounds. No pulsatile masses. No rebound, rigidity, or guarding. Normal inspection and palpation. EXTREMITIES: Normal inspection and palpation. No edema, clubbing or cyanosis. SKIN: Warm and dry without rashes. Normal inspection. MUSCULOSKELETAL: No cervical, thoracic, lumbar or midline bony tenderness. Normal inspection. NEURO: Alert, awake and oriented x3. Cranial nerves: II through XII grossly intact. Speech and language: Normal with no dysarthria or dysphasia. Motor system: Tone and bulk: Normal: Strength: 5 out of 5 in all 4 extremities; No pronator drift noted. Deep tendon reflexes: 2+ bilaterally symmetrical. Plantar reflex: Downgoing bilaterally. Sensory system: Intact to all modalities of sensation bilaterally. Coordination: Intact to iuouvb-hfib-aoozr and kufu-adwa-rfwc test bilaterally. No ataxia, no dysmetria, or dysdiadochokinesia noted. No intention tremors noted. Gait: Normal. Toe, heel, tandem walk all are normal. Romberg: Negative. No signs of meningeal irritation noted. PSYCHIATRIC: Normal mood and affect. Objective Labs 04/24/25 13:53 04/24/25 13:53 Labs: Laboratory Results - last 24 hr 04/24/25 13:53 WBC 7.6 RBC 4.62 Hgb 13.3 Hct 39.8 MCV 86 MCH 28.8 MCHC 33.4 RDW Std Deviation 43.3 Plt Count 177 Neut % (Auto) 37 Lymph % (Auto) 55 H [place] % (Auto) 7 Eos % (Auto) 1 Baso % (Auto) 1 Neut # (Auto) 2.8 Lymph # (Auto) 4.2 [place] # (Auto) 0.5 Eos # (Auto) 0.1 Baso # (Auto) 0.1 Immature Gran # (Auto) 0.01 H Absolute Nucleated RBC 0.00 Immature Gran % 0 Nucleated RBC % 0 PT 10.4 INR 1.0 APTT 28.0 Sodium 142 Potassium 4.0 Chloride 106 Carbon Dioxide 26.2 Anion Gap 10 BUN 12 Creatinine 0.9 Estim Creat Clear Calc 79.7 eGFR > 60 BUN/Creatinine Ratio 13 Glucose 97 Calculated Osmolality 282 Calcium 9.7 Corrected Calcium 9.7 Magnesium 1.9 Total Bilirubin 0.5 AST 23 ALT 12 Alkaline Phosphatase 120 H Troponin I < 0.002 Total Protein 8.1 Albumin 4.7 Globulin 3.4 Albumin/Globulin Ratio 1.4 HCG (Qual) Negative Assessment & Plan Assessment and plan (1) Brain TIA: Status: Acute Assessment and plan: Reassurance given to the patient regarding the negative MRI brain for acute infarction. Continue with the dual antiplatelet therapy along with statin followed by aspirin alone. Follow-up with echocardiogram and lipid panel.
[2025-04-25] VITALS: BP 118/75; PULSE 77; PULSE 79; RESP 18; TEMP 36.8; O2SAT 96
[2025-04-25 04:00] VITALS: BP 111/67; PULSE 70; PULSE 76; RESP 17; TEMP 36.2; O2SAT 97
[2025-04-25 05:40] LABS: Basophils # (Auto) 0.1 Thou/mm3 (0.0-0.2); Basophils % (Auto) 1 % (0-2.5); Eosinophils # (Auto) 0.1 Thou/mm3 (0.0-0.5); Eosinophils % (Auto) 1 % (0-10); Hematocrit 34.7 % (36.0-46.0); Hemoglobin 11.6 g/dL (12.0-16.0); Immature Granulocytes Auto 0.00 Thou/mm3 (0.00-0.00); Lymphocytes # (Auto) 3.5 Thou/mm3 (1.0-4.8); Lymphocytes % (Auto) 62 % (10-50); Mean Corpuscular HGB Conc 33.4 g/dl (31.0-37.0); Mean Corpuscular Hemoglobin 28.7 pg (25.0-35.0); Mean Corpuscular Volume 86 fL (80-100); Monocytes # (Auto) 0.6 Thou/mm3 (0.0-0.8); Monocytes % (Auto) 11 % (0-12); Neutrophils # (Auto) 1.4 Thou/mm3 (1.8-7.7); Neutrophils % (Auto) 25 % (37-80); Nucleated Red Blood Cell # 0.00 Thou/mm3 (0.00-0.00); Nucleated Red Blood Cell % 0 /100 WBC (0); Platelet Count 189 Thou/mm3 (140-440); RDW Standard Deviation 42.6 fL (36.4-46.3); Red Blood Count 4.04 Miln/mm3 (4.00-5.20); White Blood Count 5.6 Thou/mm3 (3.6-11.0)
[2025-04-25 06:00] VITALS: BMI 30.7
[2025-04-25 06:21] LABS: Glucose Estimated Average 100 mg/dL (80-131); Hemoglobin A1C 5.1 % Hgb (4.8-6.0)
[2025-04-25 06:22] LABS: Alanine Aminotransferase 10 U/L (10-49); Albumin, Serum 3.9 gm/dL (3.5-5.0); Albumin/Globulin Ratio 1.6 (1.2-2.2); Alkaline Phosphatase 100 U/L (46-116); Anion Gap 10 (7-16); Aspartate Amino Transferase 17 U/L (0-34); BUN/Creatinine Ratio 16 Ratio (12-20); Bilirubin,Total 0.7 mg/dL (0.3-1.2); Blood Urea Nitrogen 13 mg/dL (9-23); Calcium 9.0 mg/dL (8.3-10.6); Calcium (Corrected) 9.1 mg/dL (8.5-10.1); Carbon Dioxide 24.8 mMol/L (20.0-31.0); Cardiac Risk Estimate 3.5 RATIO (3.7-5.6); Chloride 106 mMol/L (98-107); Cholesterol 166 mg/dL (132-200); Creatinine (Component) 0.8 mg/dL (0.6-1.3); Estimated Creatinine Clearance 89.7 mL/min (>60); Globulin 2.5 gm/dL (2.3-3.5); Glucose 91 mg/dL (74-106); HDL Cholesterol 47 mg/dL (40-60); LDL Cholesterol,Calculated 98 mg/dL (0-130); Magnesium 1.9 mg/dL (1.6-2.6); Osmolality,Calculated 281 (275-295); Phosphorous 3.9 mg/dL (2.4-5.1); Potassium 3.9 mMol/L (3.4-5.1); Sodium 141 mMol/L (136-145); Thyroid Stimulating Hormone 1.03 uIU/mL (0.55-4.78); Total Protein 6.4 gm/dL (5.7-8.2); Triglycerides 105 mg/dL (30-150); eGFR > 60 See Note
[2025-04-25 07:57] VITALS: PULSE 79
[2025-04-25 08:00] VITALS: BP 111/75; PULSE 75; RESP 18; TEMP 36.8; O2SAT 97
[2025-04-25] MEDS: CLOPIDOGREL BISULFATE 75 MG TABLET PO (08:33)
[2025-04-25] MEDS: HEPARIN SOD INJ 5000 UNIT/ML VIAL SC (08:33)
[2025-04-25 11:53] LABS: Collection Type, Urine Clean Catch
--- NOTE | 2025-04-25 11:54 | PD.RESPRO ---
Documentation for date of: 04/25/25 Exam Vital Signs Temp Pulse Resp BP Pulse Ox O2 Del Method 98.3 F 75 18 111/75 97 Room Air 04/25/25 08:00 04/25/25 08:00 04/25/25 08:00 04/25/25 08:00 04/25/25 08:00 04/25/25 08:00 Objective Labs 04/25/25 05:25 04/25/25 05:25 Labs: Laboratory Results - last 24 hr 04/24/25 04/25/25 13:53 05:25 WBC 7.6 5.6 RBC 4.62 4.04 Hgb 13.3 11.6 L Hct 39.8 34.7 L MCV 86 86 MCH 28.8 28.7 MCHC 33.4 33.4 RDW Std Deviation 43.3 42.6 Plt Count 177 189 Neut % (Auto) 37 25 L Lymph % (Auto) 55 H 62 H [place] % (Auto) 7 11 Eos % (Auto) 1 1 Baso % (Auto) 1 1 Neut # (Auto) 2.8 1.4 L Lymph # (Auto) 4.2 3.5 [place] # (Auto) 0.5 0.6 Eos # (Auto) 0.1 0.1 Baso # (Auto) 0.1 0.1 Immature Gran # (Auto) 0.01 H 0.00 Absolute Nucleated RBC 0.00 0.00 Immature Gran % 0 0 Nucleated RBC % 0 0 PT 10.4 INR 1.0 APTT 28.0 Sodium 142 141 Potassium 4.0 3.9 Chloride 106 106 Carbon Dioxide 26.2 24.8 Anion Gap 10 10 BUN 12 13 Creatinine 0.9 0.8 Estim Creat Clear Calc 79.7 89.7 eGFR > 60 > 60 BUN/Creatinine Ratio 13 16 Glucose [address] Glu mg/dL 100 Hemoglobin A1c 5.1 Calculated Osmolality 282 281 Calcium 9.7 9.0 Corrected Calcium 9.7 9.1 Phosphorus 3.9 Magnesium 1.9 1.9 Total Bilirubin 0.5 0.7 AST 23 17 ALT 12 10 Alkaline Phosphatase 120 H 100 D Troponin I < 0.002 Total Protein 8.1 6.4 Albumin 4.7 3.9 D Globulin 3.4 2.5 Albumin/Globulin Ratio 1.4 1.6 Triglycerides 105 Cholesterol 166 LDL Cholesterol, Calc 98 HDL Cholesterol 47 Cholesterol/HDL Ratio 3.5 L TSH 1.03 HCG (Qual) Negative Quality Measures Quality Measures none Assessment & Plan Assessment Current Active Medications: Generic Name Dose Route Start Last Admin Trade Name Lakhwinder PRN Reason Stop Dose Admin Acetaminophen 650 mg 04/24/25 15:58 Acetaminophen Supp 650 Mg Supp [place] 05/24/25 15:57 Q6H PRN PAIN SCALE 1-3 (mild Atorvastatin Calcium 40 mg 04/24/25 21:00 04/24/25 20:43 Atorvastatin Calcium 20 Mg Tablet PO 05/24/25 20:59 40 mg HS RAFAEL Administration Clopidogrel Bisulfate 75 mg 04/25/25 09:00 04/25/25 08:33 Clopidogrel Bisulfate 75 Mg Tablet PO 05/25/25 08:59 75 mg QDAY RAFAEL Administration Heparin Sodium (Porcine) 5,000 unit 04/24/25 21:00 04/25/25 08:33 Heparin Sod Inj 5000 Unit/Ml Vial SC 05/08/25 20:59 5,000 unit Q12HR RAFAEL Administration Labetalol HCl 10 mg 04/24/25 13:49 Labetalol Inj 5 Mg/Ml Vial 4 Ml IVP Q15M PRN hypertension Melatonin 6 mg 04/24/25 16:06 Melatonin 3 Mg Tablet PO 05/24/25 20:59 HS PRN Insomnia Ondansetron HCl 4 mg 04/24/25 13:49 Ondansetron Inj 2 Mg/Ml Inj 2 Ml IVP 05/24/25 13:48 Q4HR PRN NAUSEA OR VOMITING
[2025-04-25 12:00] VITALS: BP 116/80; PULSE 80; RESP 23; TEMP 36.8; O2SAT 99
[2025-04-25 12:02] LABS: Bilirubin,Urine Negative (Negative); Blood,Urine Negative (Negative); Clarity,Urine Clear (Clear/Hazy); Color,Urine Yellow (Lt Yel-Yel); Culture Indicated,Urine Not Indicated; Glucose, Urine Negative (Negative); Ketones,Urine Negative (Negative); Leukocyte Esterase,Urine Negative (Negative); Nitrite,Urine Negative (Negative); PH,Urine 6.0 (5.0-7.0); Protein,Urine Negative (Neg - Trace); RBC,Urine 1 /hpf (0-3); Specific Gravity,Urine 1.031 (1.001-1.035); Squamous Epithelial Cell,Urine 1 /hpf (0-5); Urobilinogen,Urine Negative mg/dL (0.0-1.0); WBC,Urine 1 /hpf (0-5)
--- NOTE | 2025-04-25 14:43 | EVENTNT_ITS ---
Documentation for date of: 04/25/25 Event Note Event Note: Patient decided to leave AGAINST MEDICAL ADVICE today after risks were clearly explained, including the risk of stroke recurrence and potential permanent neurologic deficits. 59-year-old female with PMH of HTN, HLD, and obesity class I presented on 04/24/25 with transient lower lip numbness, left-hand/forearm numbness, and visual flashing, lasting 20 minutes, fully resolved before ED arrival. Stroke alert was activated, CT head, CTA head/neck, and CXR all negative. MRI brain showed no acute infarct but noted punctate white matter hyperintensities possibly related to demyelinating disease. Neurology recommended patient to start dual antiplatelet therapy so we started Plavix only due to aspirin allergy, and Atorvastatin 40 mg nightly. Echocardiogram with bubble study was recommended prior to discharge which would've been done tomorrow. Patient was seen this morning, labs today remained normal, including CBC, CMP, A1c 5.1, lipids normal, TSH normal. Patient remained neurologically intact. she reported complete resolution of numbness, no headache, no dizziness, no visual symptoms, no weakness, no speech changes. Explained MRI findings, TIA concern, and need for cardiac workup including echocardiogram, which neurology requested before discharge to rule out embolic sources. Patient stated she could not stay until tomorrow because she has pets at home and cannot arrange care. Risks of leaving AMA were explained including but not limited to: * risk of recurrent TIA or stroke * risk of permanent neurological deficits Despite understanding, patient elected to leave AMA. ----- Plan discussed with attending physician Dr. Maverick Sandoval MD PGY-1 Internal Medicine
--- NOTE | 2025-04-25 16:08 | PC.NURSE ---
pt.left AMA.Pt.awake,alert and oriented.Pt.stated she needs to go home to take care of her pets and animals.pt.was asked if somebody can take care of her animals,said no.
--- NOTE | 2025-04-25 23:55 | PD.VPROG1 ---
Telemedicine visit statement This visit was conducted with the use of interactive audio and video telecommunications system that permits real time communication between the patient and the provider. Patient's verbal consent for virtual visit was obtained on 04/25/25 at 2355. Documentation for date of: 04/25/25 Virtual exam Vital Signs Temp Pulse Resp BP Pulse Ox O2 Del Method 98.2 F 80 23 H 116/80 99 Room Air 04/25/25 12:00 04/25/25 12:00 04/25/25 12:00 04/25/25 12:00 04/25/25 12:00 04/25/25 08:00 Objective Labs 04/25/25 05:25 04/25/25 05:25 Labs: Laboratory Results - last 24 hr 04/25/25 04/25/25 05:25 11:23 WBC 5.6 RBC 4.04 Hgb 11.6 L Hct 34.7 L MCV 86 MCH 28.7 MCHC 33.4 RDW Std Deviation 42.6 Plt Count 189 Neut % (Auto) 25 L Lymph % (Auto) 62 H [place] % (Auto) 11 Eos % (Auto) 1 Baso % (Auto) 1 Neut # (Auto) 1.4 L Lymph # (Auto) 3.5 [place] # (Auto) 0.6 Eos # (Auto) 0.1 Baso # (Auto) 0.1 Immature Gran # (Auto) 0.00 Absolute Nucleated RBC 0.00 Immature Gran % 0 Nucleated RBC % 0 Sodium 141 Potassium 3.9 Chloride 106 Carbon Dioxide 24.8 Anion Gap 10 BUN 13 Creatinine 0.8 Estim Creat Clear Calc 89.7 eGFR > 60 BUN/Creatinine Ratio [address] Glu mg/dL 100 Hemoglobin A1c 5.1 Calculated Osmolality 281 Calcium 9.0 Corrected Calcium 9.1 Phosphorus 3.9 Magnesium 1.9 Total Bilirubin 0.7 AST 17 ALT 10 Alkaline Phosphatase 100 D Total Protein 6.4 Albumin 3.9 D Globulin 2.5 Albumin/Globulin Ratio 1.6 Triglycerides 105 Cholesterol 166 LDL Cholesterol, Calc 98 HDL Cholesterol 47 Cholesterol/HDL Ratio 3.5 L TSH 1.03 Ur Collection Type Clean Catch Urine Color Yellow Urine Clarity Clear Urine pH 6.0 Ur Specific [place] 1.031 Urine Protein Negative Urine Glucose (UA) Negative Urine Ketones Negative Urine Blood Negative Urine Nitrite Negative Urine Bilirubin Negative Urine Urobilinogen (Auto) Negative Ur Leukocyte Esterase Negative Urine RBC 1 Urine WBC 1 Ur Squamous Epith Cells 1 Urine Bacteria None Ur Culture Indicated? Not Indicated
== END 2025-04-25 15:15 | disposition left against medical advice (07) | DRG 47 ==
LOC: SERX 15:18 → SERHOLD 16:17 → S2NX 18:34
PROVIDERS: Nurse Practitioner Family; Admitting Provider Student in an Organized Health Care Education/Training Program; Emergency Provider Emergency Medicine; PCP Nurse Practitioner Family; Visit Provider Student in an Organized Health Care Education/Training Program
DX: G45.9 Transient cerebral ischemic attack, unspecified (principal); I10 Essential (primary) hypertension; E78.5 Hyperlipidemia, unspecified; E66.811 Obesity, class 1; Z68.30 Body mass index [BMI] 30.0-30.9, adult; Z53.29 Procedure and treatment not carried out because of patient's decision for other reasons; Z79.82 Long term (current) use of aspirin; Z79.899 Other long term (current) drug therapy; Z88.6 Allergy status to analgesic agent
CPT/HCPCS: 36415; 70450; 70496; 70498; 70544; 71045; 80053; 80061; 80307; 81001; 83036; 83735; 84100; 84443; 84484; 84703; 85025; 85610; 85730; 92610; 93005; 99285; A4649; J1644; Q9967; A9270